=== PATIENT | male | born 1950 | race African-American/Black ===

== ENCOUNTER 2017-08-04 21:09 | Emergency (ER) | payer MEDICARE ==
[2013-07-28 01:44] VITALS: BMI 40.9
[~2017-08-04 21:09] MED LIST: ASPIRIN325 MG PO; CARAFATE1 G PO; COREG25 MG PO; FLOMAX0.4 MG PO; LASIX20 MG PO; MEDROL DOSE PACK4 MG PO; MICRO-K10 MEQ PO; NORCO 10/325 TA1 TA1 PO; PRINIVIL20 MG PO; PROTONIX40 MG PO; VIBRAMYCIN50 MG PO; ZITHROMAX500 MG PO
[2017-08-04 21:59] LABS: BASOPHILS 0.1 % (0-2); EOSINOPHILS 3.7 % (0-7); HEMOGLOBIN 13.5 g/dL (13.5-17.5); IMMATURE GRANULOCYTES 0.4 % (0-5); LYMPHOCYTES 19.8 % (15-50); MCH 31.8 pg (26.0-34.0); MCHC 32.9 g/dL (31.0-37.0); MCV 96.5 fL (80.0-100.0); MEAN PLATELET VOLUME 10.4 fL (7.4-10.4); MONOCYTES 7.1 % (2-11); NEUTROPHILS 68.9 % (40-80); PLATELET COUNT 162 10x3/uL (130-400); RBC 4.25 10x6/uL (4.20-6.10); RDW 12.9 % (11.5-14.5); WBC 6.7 10x3/uL (4.8-10.8)
[2017-08-04 22:12] LABS: ALBUMIN 3.4 g/dL (3.4-5.0); ALKALINE PHOSPHATASE 80 U/L (46-116); ALT (SGPT) 24 U/L (10-68); CALC OSMOLALITY 278 mosm/kg (275-300); CALCIUM 9.9 mg/dL (8.5-10.1); CARBON DIOXIDE 26.2 mmol/L (21.0-32.0); CHLORIDE - SERUM 100 mmol/L (98-107); GLUCOSE 164 mg/dL (74-106); POTASSIUM - SERUM 3.7 mmol/L (3.5-5.1); SODIUM 138 mmol/L (136-145); UREA NITROGEN 9 mg/dL (7-18); eGFR NON AFRICAN AMERICAN 79 mL/min (90-120)
[2017-08-04 22:15] LABS: HELICOBACTER PYLORI IGG NEGATIVE (NEGATIVE)
[2017-08-04 22:27] LABS: AMYLASE - SERUM 70 U/L (25-115); CHOL - HDL RATIO 2.9 ratio (2.3-4.9); CHOLESTEROL, TOTAL 154 mg/dL (0-200); CKMB 1.1 U/L (0.0-3.6); CREATINE KINASE 232 UL (21-232); HDL CHOLESTEROL 54 mg/dL (32-96); LDL CHOLESTEROL 72 mg/dL (0-100); LDL-HDL RATIO 1.3 ratio (1.5-3.5); LIPASE 76 U/L (73-393); MAGNESIUM - SERUM 1.7 mg/dL (1.8-2.4); PRO BNP 98 pg/mL (0-125); TRIGLYCERIDE 142 mg/dL (30-200); TROPONIN-I < 0.017 ng/mL (0.000-0.060)
== END 2017-08-04 22:45 | disposition home or self-care (01) ==
LOC: D.ER 21:09
PROVIDERS: Family Medicine; Nurse Practitioner Family
DX: K21.9 Gastro-esophageal reflux disease without esophagitis (principal); R10.13 Epigastric pain; I10 Essential (primary) hypertension

== ENCOUNTER → 2017-08-24 09:46 | Outpatient (CLI) | payer MEDICARE ==
[2013-07-28 01:44] VITALS: BMI 40.9
== END | disposition home or self-care (01) ==
LOC: D.ECHO 08-21 10:00
DX: I20.9 Angina pectoris, unspecified (principal); I10 Essential (primary) hypertension; R06.00 Dyspnea, unspecified

== ENCOUNTER 2017-09-09 18:07 | Emergency (ER) | payer MEDICARE ==
[2013-07-28 01:44] VITALS: BMI 40.9
[2017-09-09 19:38] LABS: BASOPHILS 0.3 % (0-2); EOSINOPHILS 2.6 % (0-7); HEMATOCRIT 41.3 % (42.0-54.0); IMMATURE GRANULOCYTES 1.3 % (0-5); LYMPHOCYTES 24.9 % (15-50); MCH 31.4 pg (26.0-34.0); MCHC 33.9 g/dL (31.0-37.0); MCV 92.6 fL (80.0-100.0); MEAN PLATELET VOLUME 10.6 fL (7.4-10.4); MONOCYTES 6.7 % (2-11); NEUTROPHILS 64.2 % (40-80); PLATELET COUNT 201 10x3/uL (130-400); RBC 4.46 10x6/uL (4.20-6.10); RDW 12.4 % (11.5-14.5); WBC 7.4 10x3/uL (4.8-10.8)
[2017-09-09 19:56] LABS: ALBUMIN 3.6 g/dL (3.4-5.0); ALKALINE PHOSPHATASE 74 U/L (46-116); ALT (SGPT) 25 U/L (10-68); BILIRUBIN - TOTAL 0.47 mg/dL (0.2-1.3); CALC OSMOLALITY 279 mosm/kg (275-300); CALCIUM 9.6 mg/dL (8.5-10.1); CARBON DIOXIDE 27.4 mmol/L (21.0-32.0); CHLORIDE - SERUM 101 mmol/L (98-107); CREATININE - SERUM 1.1 mg/dL (0.6-1.3); POTASSIUM - SERUM 3.6 mmol/L (3.5-5.1); PROTEIN - SERUM 6.8 g/dL (6.4-8.2); SODIUM 136 mmol/L (136-145); UREA NITROGEN 16 mg/dL (7-18); eGFR NON AFRICAN AMERICAN 71 mL/min (90-120)
[2017-09-09 19:59] LABS: GLUCOSE 219 mg/dL (74-106)
[2017-09-09 20:07] LABS: CKMB 0.9 U/L (0.0-3.6); CREATINE KINASE 117 UL (21-232)
[2017-09-09 20:08] LABS: TROPONIN-I < 0.017 ng/mL (0.000-0.060)
== END 2017-09-09 21:42 | disposition home or self-care (01) ==
LOC: D.ER 18:07
PROVIDERS: Family Medicine
DX: J11.1 Influenza due to unidentified influenza virus with other respiratory manifestations (principal); E86.0 Dehydration; K21.9 Gastro-esophageal reflux disease without esophagitis; I10 Essential (primary) hypertension

== ENCOUNTER 2017-09-12 06:40 | Outpatient (CLI) | payer MEDICARE ==
[~2017-09-12] VITALS: Ht 185.4 cm; Wt 154.5 kg
--- NOTE | ~2017-09-12 | OP ---
PATIENT NAME: RAYMOND HERNANDEZ MEDICAL RECORD: [id number] :48 LOCATION:D.CAT ADMISSION DATE: SURGEON: OUMAR ECKERT MD DATE OF OPERATION: 09/12/2017 PROCEDURE: Left heart cath, LV gram, coronary angiogram. CONVERTIBLE SOFA BEDSPRING TESTER: Oumar Eckert MD PROCEDURE IN DETAIL: The patient was brought to cardiac catheterization lab in stable condition. Both groins sterilely prepped and draped. The patient had a 6-Beninese sheath placed in the right radial artery using modified Seldinger technique. The patient then had serial catheters utilized to selectively engage the left coronary artery, the LV catheter. We nonselectively engaged the right coronary artery. FINDINGS: 1. Left main is a large vessel, normal. 2. The circumflex appears to be a codominant vessel with mild atherosclerotic changes in the proximal 40% stenosis. 3. The LAD is shown to be a large vessel with diffuse atherosclerotic changes. 4. The right coronary artery comes up high above the sinotubular junction and has diffuse atherosclerotic changes. There is no evidence of significant stenoses. HEMODYNAMICS: Left ventricular ejection fraction is 50%, end-diastolic pressure is normal. No significant mitral regurgitation. No gradient across the aortic valve. IMPRESSION: Mild diffuse coronary artery disease with preserved LV systolic function. RECOMMENDATIONS: Aggressive medical management. TRANSINT:[id number] Voice Confirmation ID: [id number] DOCUMENT ID: [id number] OUMAR ECKERT MD at 1111 CC: [id number] DICTATION DATE: 09/12/17921 ACTIVITY THERAPIST: 09/12/17 [id number] [place] [address]
--- NOTE | ~2017-09-12 | HEMODYNAMI ---
PATIENT:RAYMOND HERNANDEZ MEDICAL RECORD: [id number] : 48 LOCATION:DMUNA ADMISSION DATE: 09/12/17 Generatedon:09/12/20179:20 Patient name: RAYMOND HERNANDEZ Patient #: [id number] SSN: DO B: 1950 Date of study: 09/12/2017 Page: Of Hemodynamic Procedure Report Patient Data Patient Demographics Procedure consent was obtained First Name: RAYMOND Gender: Male Last Name: DAVID : 1950 Middle Initial: LUPE Age: 67 year(s) Patient #: [id number] Race: Black Additional ID: [id number] Contact details Address: [address] [place] [address] State: [place] City: [place] Zip code: [address] Past Medical History Allergies Allergen Reaction Date Comments Reported Other allergy 09/12/2017 albumin colloid, human. Admission Admission Data Admission Date: 09/12/2017 Admission Time: 6:40 Height (in.): 6 BSA: 0.45 (m2) Height (cm.): 15.24 BMI: 6815.87 (kg/m2) Weight (lbs.): 349 Weight (kg.): 158.3 Lab Results Lab Result Date: 09/12/2017 Lab Result Time: 0:00 Biochemistry Name Units Result Min Max BUN mg/dl 9 --(*---)-- 7 18 Creatinine mg/dl 0.9 --(-*--)-- 0.6 1.3 CBC Name Units Result Min Max Hemoglobin g/dl 13 -*(----)-- 13.5 17.5 Procedure Procedure Types Cath Procedure Diagnostic Procedure [facility] w/Coronaries Miscellaneous Procedures Moderate Sedation up to 30 minutes Procedure Description Procedure Date Procedure Date: 09/12/2017 Procedure Start Time: 8:46 Procedure End Time: 9:18 Procedure Staff Name Function Oumar Canales MD Performing Physician Judit Sexton RT Scrub Desmond Patterson RT Monitor Tobias Ernst RN Nurse Bassem Villagran RN Nurse Shiva Glover RN Nurse Procedure Data Cath Procedure Fluoroscopy Diagnostic fluoroscopy Total fluoroscopy Time: time: 12.4 min 12.4 min Diagnostic fluoroscopy Total fluoroscopy dose: dose: 2366 mGy 2366 mGy Contrast Material Contrast Material Type Amount (ml) Isovue 300 144 Entry Location Entry Primary Successful Side Size Upsize Upsize Entry Closure [place] ccessful Closure Location (Fr) 1 (Fr) 2 (Fr) Remarks Device Remarks Radial Right 6 Fr Mechanical artery Short Compression Estimated blood loss: 5 ml Diagnostic catheters Device Type Used For End Catheter Placement DIAGNOSTIC AR 1 MOD 5Fr Procedure catheter ([id number]) DIAGNOSTIC Pigtail 5Fr Procedure catheter ([id number]) DIAGNOSTIC 3DRC 5Fr Procedure catheter ([id number]) DIAGNOSTIC MPA-2 5Fr Procedure catheter ([id number]) DIAGNOSTIC [place] 110cm 5 Procedure Fr catheter ([id number]) Procedure Complications No complications Procedure Medications Medication Administration Route Dosage Oxygen NC 2 l/min Lidocaine 2% added to field 20 Heparin Flush Bag added to field 2 bags (1000units/500ml NS) 0.9% NaCl I.V. 100 ml/hr Versed I.V. 2 mg Fentanyl I.V. 50 mcg Versed I.V. 1 mg Radial Cocktail I.A. 1 syringe (Verapomil 2mg/Nitro 400mcg/Heparin 1500units) Hemodynamics Rest BSA: 0.45 (m2) HGB: 13 (g/dl) O2 Consumption: Estimated: 53.04 (ml/min) O2 Consu mption indexed: Estimated:117.87 (ml/min/m) Heart Rate: 75 (bpm) Pressure Samples Time Site Value (mmHg) Purpose Heart Use Rate(bpm) 8:52 LV 136/1,19 EDP 76 8:54 AO 103/72(88) Pullback 91 Gradients Valve Time Site Site 2 Mean SEP/DFP Peak To Heart Use 1 (mmHg) (sec/min) Peak Rate (mmHg) (bpm) Aortic 8:54 LV AO 2 5 91 103/72(88) Calculations Valve P-P Mean Valve Index Valve Source Name Gradient Area Flow (cm2) Aortic 2 2 Snapshots Pre Cath Intra NCS Post Cath Vital Signs Time Heart Resp SPO2 etCO2 NIBP (mmHg) Rhythm Pain Sedation Rate (ipm) (%) (mmHg) Status Level (bpm) 8:33:10 77 14 95 33.3 140/87(106) NSR 0 (11) 10(A) , No pain 8:41:01 75 13 93 29.5 128/90(108) NSR 0 (11) 10(A) , No pain 8:46:06 76 14 92 29.5 132/82(108) NSR 0 (11) 10(A) , No pain 8:51:07 82 15 92 0 116/76(97) NSR 0 (11) 9(A) , No pain 8:56:07 78 18 92 3 119/76(88) NSR 0 (11) 9(A) , No pain 9:01:08 75 13 91 28 121/73(92) NSR 0 (11) 9(A) , No pain 9:06:09 72 16 93 30.3 123/76(98) NSR 0 (11) 9(A) , No pain 9:11:10 74 19 92 34.9 118/80(98) NSR 0 (11) 10(A) , No pain 9:16:09 73 16 95 33.4 121/82(99) NSR 0 (11) 10(A) , No pain Medications Time Medication Route Dose Verified Delivered Reason Notes E ffectiveness by by 8:31:29 Oxygen NC 2 l/min Oumar Buffie used for Parker Villagran RN procedure 8:31:36 Lidocaine 2% added 20ml Oumar Oumar for local to vial Parker Canales MD anesthetic field SILVERIO 8:31:42 Heparin Flush added 2 bags Oumar Oumar used for Bag to Parker Canales MD procedure (1000units/500ml field SILVERIO NS) 8:31:51 0.9% NaCl I.V. 100 Oumar Buffie Per ml/hr Parker Villagran RN physician 8:42:40 Versed I.V. 2 mg Oumar Buffie for sedation Parker Villagran RN, MD 8:42:46 Fentanyl I.V. 50 mcg Oumar Buffie for sedation Parker Villagran RN, MD 8:45:22 Versed I.V. 1 mg Oumar Buffie for sedation Parker Villagran RN, MD 8:48:16 Radial Cocktail I.A. 1 Oumar Oumar for (Verapomil syringe Parker Canales MD vasodilation 2mg/Nitro 400mcg/Heparin 1500units) Procedure Log Time Note 8:12:51 Patient Height : 6 inches 8:12:58 Patient Weight : 349 lbs 8:14:02 Signed procedure consent form obtained from patient. 8:14:17 Time tracking: Regular hours 8:14:22 Plan of Care:Hemodynamics will remain stable., Cardiac rhythm will remain stable., Comfort level will be maintained., Respiratory function will remain adequate., Patient/ family verbilizes understanding of procedure., Procedure tolerated without complication., Recovers from procedure without complications.. 8:14:33 H&P Date Dictated: 09/11/2017 Within 30 days and on chart., H&P Addendum completed by physician on day of procedure. (MUST COMPLETE FOR ALL OUTPATIENTS). 8:17:07 Lab Result : BUN 9 mg/dl 8:17:07 Lab Result : Creatinine 0.9 mg/dl 8:17:07 Lab Result : Hemoglobin 13 g/dl 8:19:58 Tobias Ernst RN sent for patient. Start room use. 8:26:07 Patient received from Pre/Post Procedure Room to CCL 1 Alert and oriented. Tansferred to table in Supine position. 8:26:07 Warm blankets applied, and edmar hugger turned on for patient comfort. 8:26:24 Correct patient and procedure confirmed by team. 8:26:25 ECG and BP/O2 sat monitors applied to patient. 8:26:26 Pre-procedure instructions explained to patient. 8:26:27 Pre-op teaching completed and patient verbalized understanding. 8:26:28 Family in waiting room. 8:26:29 Patient NPO since Midnight. 8:28:12 Patient allergic to Other allergyalbumin colloid, human. 8:31:29 Oxygen 2 l/min NC was administered by Bassem Villagran RN; used for procedure; 8:31:36 Lidocaine 2% 20ml vial added to field was administered by Oumar Canales MD; for local anesthetic; 8:31:42 Heparin Flush Bag (1000units/500ml NS) 2 bags added to field was administered by Oumar Canales MD; used for procedure; 8:31:51 0.9% NaCl 100 ml/hr I.V. was administered by Bassem Villagran RN; Per physician; 8:39:42 Vital chart was started 8:40:49 Baseline sample Acquired. 8:40:54 Rhythm: sinus rhythm 8:40:57 Is the patient allergic to Iodine/contrast media? No. 8:40:58 Is patient on blood thinner?Yes 8:41:00 ACC The patient was administered the following blood thiners within the last 24 hours: ACCPlavix 8:41:02 Patient diabetic? No. 8:41:06 Previous problem with sedation/anesthesia? No ? 8:41:07 Snore? Yes 8:41:18 Sleep apnea? No 8:41:19 Deviated septum? No 8:41:20 Opens mouth fully? Yes 8:41:21 Sticks out tongue? Yes 8:41:23 Airway obstruction? No ? 8:41:25 Dentures? No ? 8:41:27 Modified Nimesh's test Ulnar > 7 seconds. 8:41:28 Patient pain scale 0/10 ?. 8:41:34 IV patent on arrival in left forearm with 0.9% NaCl at O. 8:41:37 Lab results completed and on chart. 8:41:40 Right Radial & Right Groin area was prepped with chlora-prep and draped in sterile fashion 8:41:41 Alarms reviewed by R. N. 8:41:41 Sharps counted by scrub and verified by R.N. 8:41:43 Use device set Radial Dx or PCI 8:41:44 ACIST Syringe (12997) opened to sterile field. 8:41:45 Medline Cath Pack ([id number]) opened to sterile field. 8:41:47 ACIST Hand Control (83823) opened to sterile field. 8:41:47 ACIST Manifold (00357) opened to sterile field. 8:41:48 Tegaderm 4 x 4 (1626W) opened to sterile field. 8:41:48 MBrace Wrist Support ([id number]) opened to sterile field. 8:41:49 Bag Decanter (2001S) opened to sterile field. 8:41:52 SHEATH 6FR Slender ([id number]) opened to sterile field. 8:41:52 DIAGNOSTIC WIRE .035 260cm J wire (183954) opened to sterile field. 8:42:03 Physician arrived 8:42:04 --------ALL STOP TIME OUT------ 8:42:04 Final Timeout: patient, procedure, and site verified with staff and physician. All members of the team are in agreement. 8:42:06 Right Radial & Right Groin site verified by team. 8:42:08 Physical assessment completed. ASA score P 2 - A patient with mild systemic disease as per Oumar Canales MD. 8:42:10 Sedation plan: IV Moderate Sedation Medication:Versed, Fentanyl 8:42:40 Versed 2 mg I.V. was administered by Bassem Villagran RN; for sedation; 8:42:46 Fentanyl 50 mcg I.V. was administered by Bassem Villagran RN; for sedation; 8:45:22 Versed 1 mg I.V. was administered by Bassem Villagran RN; for sedation; 8:46:21 Procedure started. 8:46:21 Full Disclosure recording started 8:46:24 Local anesthetic to right radial artery with Lidocaine 2% by Oumar Canales MD.INITIAL ACCESS ONLY 8:46:31 A 6 Fr Short sheath was inserted into the Right Radial artery 8:48:05 Zero performed for pressure channel P1 8:48:08 Zero performed for pressure channel P1 8:48:16 Radial Cocktail (Verapomil 2mg/Nitro 400mcg/Heparin 1500units) 1 syringe I.A. was administered by Oumar Canales MD; for vasodilation; 8:49:40 A DIAGNOSTIC [place] 110cm 5 Fr catheter (309676) was advanced over the wire and used for Procedure. 8:50:13 LCA angiography performed. 8:52:57 LV gram done using ERICKSON 8:53:00 Injector settings: Ml/sec: 12, Volume: 8, 8:53:02 LV hemodynamics recorded. 8:54:02 EF : 55 % 8:54:06 Catheter exchanged over wire. 8:55:22 A DIAGNOSTIC [place] 1 MOD 5Fr catheter ([id number]) was advanced over the wire and used for Procedure. 9:01:12 RCA angiography performed. 9:02:44 Catheter exchanged over wire. 9:02:54 A DIAGNOSTIC Pigtail 5Fr catheter ([id number]) was advanced over the wire and used for Procedure. 9:04:41 Aortic Root visualized 9:07:02 Catheter exchanged over wire. 9:08:02 A DIAGNOSTIC 3DRC 5Fr catheter ([id number]) was advanced over the wire and used for Procedure. 9:09:19 Catheter removed. unable to cannulate vessel. 9:10:01 A DIAGNOSTIC MPA-2 5Fr catheter ([id number]) was advanced over the wire and used for Procedure. 9:12:08 Catheter removed. unable to cannulate vessel. 9:13:27 TR BAND Large ([id number]) opened to sterile field. 9:13:52 Sheath removed intact; hemostasis achieved with Mechanical Compression to the Right Radial artery. 9:13:53 Procedure ended.(Physican Out) 9:14:06 Fluoroscopy time 12.40 minutes. 9:14:10 Flurop Dose total: 2366 9:14:10 Fluoroscopy dose: 2366 mGy 9:14:16 Contrast amount:Isovue 300 144ml. 9:14:20 Sharps counted by scrub and verified by R.N. 9:14:22 Insertion/operative site no bleeding no hematoma. 9:14:28 Post right radial artery:stable, soft, clean and dry 9:14:30 Post Procedure Pulses reassessed and unchanged 9:15:09 Post-procedure physical assessment completed. ASA score P 2 - A patient with mild systemic disease as per Oumar Canales MD. 9:15:17 Post procedure rhythm: unchanged. 9:15:19 Estimated blood loss: 5 ml 9:15:20 Post procedure instruction explained to patient.Patient verbalizes understanding. 9:15:21 Patient needs reinforcement of post procedure teaching. 9:15:33 Procedure type changed to Cath procedure, Diagnostic procedure, LHC, LHC w/Coronaries, Miscellaneous Procedures, Moderate Sedation up to 30 minutes 9:17:13 TR band inflated with 11cc of air. 9:17:54 Procedure and supply charges have been captured, reviewed, submitted and are correct. 9:17:57 Procedure Complication : No complications 9:18:04 Vital chart was stopped 9:18:04 See physician's report for complete and final results. 9:18:06 Report given to Pre/Post Procedure Room. 9:18:08 Patient transfered to Pre/Post Procedure Room with Stretcher. 9:18:14 Procedure ended. 9:18:14 Full Disclosure recording stopped 9:18:18 End room use (Document Last) Device Usage Item Name Manufacture Quantity Catalog Hospital Part Current Minima l Lot# / Number Charge Number Stock Stock Serial# Code ACIST Acist 1 69353 066166 976107 483569 20 Syringe Medical (45432) Systems Inc Medline Cath Cardinal 1 [id number] 113570 77795 241036 5 Pack Health ([id number]) ACIST Hand Acist 1 68424 541887 410563 733993 5 Control Medical (52589) Systems Inc ACIST Acist 1 46861 674700 888321 400001 5 Manifold Medical (02461) Systems Inc Tegaderm 4 x 3M 1 1626W 329710 235499 928676 5 4 (1626W) MBrace Wrist Advanced 1 140-0250-00 143654 98420 013527 5 Support Vascular (569770491) Dynamics Bag Decanter Microtek 1 2001S 805018 97555 315471 5 (2001S) Medical Inc. SHEATH 6FR Terumo 1 [id number] 091181 867728 335903 40 Slender ([id number]) DIAGNOSTIC St Reece 1 087690 216500 523480 946060 30 WIRE .035 260cm J wire (282915) DIAGNOSTIC Cardinal 1 169411P 045905 723946 346356 15 AR 1 MOD 5Fr Health catheter (709705W) DIAGNOSTIC Cardinal 1 935003P 405657 959377 974342 5 Pigtail 5Fr Health catheter (479402X) DIAGNOSTIC Cardinal 1 [id number] 672232 591339 687579 9 3DRC 5Fr Health catheter (449067F) DIAGNOSTIC Cardinal 1 [id number] 285686 692324 079521 5 MPA-2 5Fr Health catheter (458184W) TR BAND Terumo 1 [id number] 774365 848006 640430 40 Large ([id number]) DIAGNOSTIC Terumo 1 40-9030 557919 785528 173146 5 [place] 110cm 5 Fr catheter (207613) Signature Audit Independence Stage Time Signature Unsigned Intra-Procedure 09/12/2017 Desmond Patterson 9:20:38 AM RT(R) Signatures Monitor : Desmond Patterson RT Signature : Date : Time : [facility] [address] [place] [address]
[2017-09-12] MEDS ORDERED: MINIPRESS1 MG PO (06:44)
[2017-09-12] MEDS ORDERED: NORVASC5 MG PO (06:45)
[2017-09-12] MEDS ORDERED: DIOVAN160 MG PO (06:45)
[2017-09-12] MEDS ORDERED: HYDROCHLOROTH12.5 M1 PO (06:46)
[2017-09-12] MEDS ORDERED: COREG12.5 MG PO (06:46)
[2017-09-12] MEDS ORDERED: NEURONTIN 300300 MG PO (06:46)
[2017-09-12 06:56] VITALS: BP 146/86; Ht 185.4 cm; Wt 154.5 kg
[2017-09-12 07:20] LABS: BASOPHILS 0.3 % (0-2); EOSINOPHILS 2.5 % (0-7); HEMATOCRIT 39.7 % (42.0-54.0); IMMATURE GRANULOCYTES 1.6 % (0-5); LYMPHOCYTES 21.7 % (15-50); MCH 31.3 pg (26.0-34.0); MCHC 32.7 g/dL (31.0-37.0); MCV 95.7 fL (80.0-100.0); MEAN PLATELET VOLUME 10.7 fL (7.4-10.4); MONOCYTES 6.4 % (2-11); NEUTROPHILS 67.5 % (40-80); PLATELET COUNT 201 10x3/uL (130-400); RBC 4.15 10x6/uL (4.20-6.10); RDW 12.8 % (11.5-14.5); WBC 7.5 10x3/uL (4.8-10.8)
[2017-09-12 07:27] LABS: CALC OSMOLALITY 281 mosm/kg (275-300); CALCIUM 9.4 mg/dL (8.5-10.1); CARBON DIOXIDE 27.8 mmol/L (21.0-32.0); CHLORIDE - SERUM 102 mmol/L (98-107); CREATININE - SERUM 0.9 mg/dL (0.6-1.3); GLUCOSE 181 mg/dL (74-106); POTASSIUM - SERUM 3.6 mmol/L (3.5-5.1); SODIUM 139 mmol/L (136-145); UREA NITROGEN 9 mg/dL (7-18); eGFR NON AFRICAN AMERICAN 89 mL/min (90-120)
== END 2017-09-12 11:40 | disposition home or self-care (01) ==
LOC: D.CATH 06:40
PROVIDERS: Internal Medicine Cardiovascular Disease
DX: I25.10 Atherosclerotic heart disease of native coronary artery without angina pectoris (principal); I10 Essential (primary) hypertension; R06.00 Dyspnea, unspecified; Z01.812 Encounter for preprocedural laboratory examination

== ENCOUNTER 2017-12-01 00:19 | Emergency (ER) | payer MEDICARE ==
[2017-09-12 06:56] VITALS: BMI 44.9
[~2017-12-01 00:19] MED LIST changes: +COREG12.5 MG PO; +DIOVAN160 MG PO; +HYDROCHLOROTH12.5 M1 PO; +MINIPRESS1 MG PO; +NEURONTIN 300300 MG PO; +NORVASC5 MG PO
[2017-12-01 01:29] LABS: BASOPHILS 0.4 % (0-2); EOSINOPHILS 3.2 % (0-7); HEMATOCRIT 37.9 % (42.0-54.0); IMMATURE GRANULOCYTES 0.7 % (0-5); LYMPHOCYTES 22.9 % (15-50); MCH 32.4 pg (26.0-34.0); MCHC 34.3 g/dL (31.0-37.0); MCV 94.5 fL (80.0-100.0); MEAN PLATELET VOLUME 11.1 fL (7.4-10.4); MONOCYTES 6.9 % (2-11); NEUTROPHILS 65.9 % (40-80); PLATELET COUNT 196 10x3/uL (130-400); RBC 4.01 10x6/uL (4.20-6.10); RDW 12.5 % (11.5-14.5); WBC 5.6 10x3/uL (4.8-10.8)
[2017-12-01 01:38] LABS: APPEARANCE CLEAR (CLEAR); BILIRUBIN NEGATIVE (NEGATIVE); COLOR YELLOW (YELLOW); GLUCOSE NEGATIVE (NEGATIVE); KETONE NEGATIVE (NEGATIVE); NITRITE NEGATIVE (NEGATIVE); PROTEIN NEGATIVE (NEGATIVE); SPECIFIC GRAVITY 1.015 (1.005-1.020); UROBILINOGEN NORMAL (NORMAL)
[2017-12-01 02:15] LABS: ALBUMIN 3.7 g/dL (3.4-5.0); ANION GAP 13.3 mmol/L (8-16); BILIRUBIN - TOTAL 0.5 mg/dL (0.2-1.3); C-REACTIVE PROTEIN 0.6 mg/dL (0.0-0.9); CALCIUM 10.2 mg/dL (8.5-10.1); CARBON DIOXIDE 27.6 mmol/L (21.0-32.0); CREATININE - SERUM 1.2 mg/dL (0.6-1.3); MAGNESIUM - SERUM 1.6 mg/dL (1.8-2.4); POTASSIUM - SERUM 3.9 mmol/L (3.5-5.1); PROTEIN - SERUM 7.2 g/dL (6.4-8.2)
== END 2017-12-01 04:00 | disposition home or self-care (01) ==
LOC: D.ER 00:19
PROVIDERS: Family Medicine
DX: E11.40 Type 2 diabetes mellitus with diabetic neuropathy, unspecified (principal); K21.9 Gastro-esophageal reflux disease without esophagitis; I10 Essential (primary) hypertension

== ENCOUNTER 2019-01-16 20:36 | Emergency (ER) | payer MEDICARE ==
[~2019-01-16] VITALS: Ht 185.4 cm; Wt 152.3 kg
[2019-01-16 20:40] VITALS: Ht 185.4 cm; Wt 152.3 kg
[2019-01-16] MEDS ORDERED: GLIPIZIDE10 MG PO (20:42)
[2019-01-16] MEDS ORDERED: HYDROCODON-ACE1 EA10 PO (20:42)
[2019-01-16] MEDS ORDERED: LASIX40 MG PO (20:42)
[2019-01-16] MEDS ORDERED: COZAAR50 MG (20:43)
[2019-01-16] MEDS ORDERED: PATANOL 0.1 % OP5 ML EACH EYE (21:09)
[2019-01-16 21:24] VITALS: BP 132/78
== END 2019-01-16 21:25 | disposition home or self-care (01) ==
LOC: D.ER 20:36
DX: H10.33 Unspecified acute conjunctivitis, bilateral (principal)

== ENCOUNTER 2019-01-22 11:04 | Inpatient (IN) | payer MEDICARE ==
[2019-01-22] VITALS (12 sets, daily range): BP systolic 118–143; BP diastolic 67–82; BMI 44.6
[~2019-01-22] VITALS: Ht 185.4 cm; Wt 153.3 kg
[~2019-01-22 11:04] MED LIST changes: +COZAAR50 MG PO; +GLIPIZIDE10 MG PO; +HYDROCODON-ACE1 EA10 PO; +LASIX40 MG PO; +PATANOL 0.1 % OP5 ML EACH EYE
[2019-01-22 12:03] LABS: BASOPHILS 0.2 % (0-2); EOSINOPHILS 0.1 % (0-7); HEMATOCRIT 43.1 % (42.0-54.0); HEMOGLOBIN 14.9 g/dL (13.5-17.5); IMMATURE GRANULOCYTES 0.5 % (0-5); LYMPHOCYTES 6.2 % (15-50); MCH 31.7 pg (26.0-34.0); MCHC 34.6 g/dL (31.0-37.0); MCV 91.7 fL (80.0-100.0); MEAN PLATELET VOLUME 10.6 fL (7.4-10.4); MONOCYTES 6.6 % (2-11); NEUTROPHILS 86.4 % (40-80); PLATELET COUNT 166 10x3/uL (130-400); RDW 12.7 % (11.5-14.5); WBC 15.3 10x3/uL (4.8-10.8)
[2019-01-22 12:19] LABS: ALBUMIN 3.9 g/dL (3.4-5.0); ALKALINE PHOSPHATASE 78 U/L (46-116); ALT (SGPT) 20 U/L (10-68); BILIRUBIN - TOTAL 1.33 mg/dL (0.2-1.3); CALC OSMOLALITY 278 mosm/kg (275-300); CALCIUM 10.5 mg/dL (8.5-10.1); CARBON DIOXIDE 25.3 mmol/L (21.0-32.0); CHLORIDE - SERUM 98 mmol/L (98-107); CREATININE - SERUM 1.9 mg/dL (0.6-1.3); GLUCOSE 181 mg/dL (74-106); POTASSIUM - SERUM 3.8 mmol/L (3.5-5.1); PROTEIN - SERUM 8.2 g/dL (6.4-8.2); SODIUM 135 mmol/L (136-145); UREA NITROGEN 23 mg/dL (7-18); eGFR NON AFRICAN AMERICAN 37 mL/min (90-120)
[2019-01-22 12:27] LABS: AMYLASE - SERUM 41 U/L (25-115); CKMB 0.7 U/L (0.0-3.6); CREATINE KINASE 335 UL (21-232); LIPASE 71 U/L (73-393); TROPONIN-I < 0.017 ng/mL (0.000-0.060)
--- NOTE | 2019-01-22 14:16 | NUR ---
BLADDER SCAN COMPLETED, MEASURED VOLUME STATES 55ML. EDP NOTIFIED.
--- NOTE | 2019-01-22 16:07 | NUR ---
PT AMBULATES TO BATHROOM, STEADY GAIT. CCUA COLLECTED ET TO LAB.
[2019-01-22 16:44] LABS: APPEARANCE CLEAR (CLEAR); BILIRUBIN NEGATIVE (NEGATIVE); COLOR DK YELLOW (YELLOW); GLUCOSE NEGATIVE (NEGATIVE); KETONE NEGATIVE (NEGATIVE); NITRITE NEGATIVE (NEGATIVE); PROTEIN TRACE mg/dL (NEGATIVE); UROBILINOGEN NORMAL (NORMAL)
[2019-01-22 16:45] LABS: BACTERIA MODERATE /hpf (NONE SEEN); WHITE CELLS - URINE 25-50 /hpf (0-5)
--- NOTE | 2019-01-22 16:57 | NUR ---
Report Received from Kirstin, RN
--- NOTE | 2019-01-22 17:06 | NUR ---
this nurse entered into room to greet patient and establish care. Pt is sleeping with even chest rhythm and movement. Pt is at his bedside and this nurse spoke with her to establish care and provide for needs. Pt denied needs but asked for a cup of coffee which this nurse provided.
--- NOTE | 2019-01-22 20:20 | NUR ---
PT ARRIVED TO FLOOR AT THIS TIME. ACCOMPANIED BY ER STAFF. PT HAD AN INCONTINENT EPISODE WHILE STANDING TO TRANSFER FROM STRETCHER TO BED. UPON ASSESSMENT OF IV IT WAS NOTED THAT THERE WAS SWELLING AND REDNESS AT THE SITE. IV REMOVED WITH CATH TIP INTACT.
[2019-01-23 00:30] VITALS: BP 92/52
--- NOTE | 2019-01-23 02:31 | NUR ---
APRIL SITED TO Naveen HORNER
[2019-01-23 04:00] VITALS: BP 109/62
--- NOTE | 2019-01-23 07:15 | NUR ---
RECEIVED REPORT FROM NIGHTSHIFT AND CARE ASSUMMED. HE WAS SHAKING SOME AND STATED I NEED WARM BLANKETS I AM FREEZING. TEMP WAS 103.2. TYLENOL WAS GIVEN PO AT THIS TIME. HE HAD MULTIPLE BLANKETS ON HIM THAT WERE REMOVED AND HE WAS LEFT WITH ONE SHEET AND ONE BLANKET WITH EXPLANATION GIVEN. AT BEDSIDE. CL IN REACH. RESP EVEN WITHOUT LABOR O2 ON.
[2019-01-23 08:27] VITALS: BP 126/83
--- NOTE | 2019-01-23 08:30 | NUR ---
RECHECK ON TEMP WAS 99.1. NO SHAKING AT THIS TIME.
[2019-01-23 09:41] LABS: BASOPHILS 0.1 % (0-2); EOSINOPHILS 0.1 % (0-7); HEMATOCRIT 36.9 % (42.0-54.0); HEMOGLOBIN 12.3 g/dL (13.5-17.5); IMMATURE GRANULOCYTES 0.4 % (0-5); MCH 30.9 pg (26.0-34.0); MCHC 33.3 g/dL (31.0-37.0); MCV 92.7 fL (80.0-100.0); MEAN PLATELET VOLUME 11.2 fL (7.4-10.4); MONOCYTES 6.5 % (2-11); NEUTROPHILS 86.9 % (40-80); RBC 3.98 10x6/uL (4.20-6.10); RDW 12.9 % (11.5-14.5); WBC 16.5 10x3/uL (4.8-10.8)
[2019-01-23 09:50] LABS: PLATELET COUNT 131 10x3/uL (130-400)
[2019-01-23 10:01] LABS: ALBUMIN 3.2 g/dL (3.4-5.0); ANION GAP 11.5 mmol/L (8-16); BILIRUBIN - TOTAL 1.78 mg/dL (0.2-1.3); CALCIUM 9.9 mg/dL (8.5-10.1); CREATININE - SERUM 1.8 mg/dL (0.6-1.3); POTASSIUM - SERUM 3.5 mmol/L (3.5-5.1)
--- NOTE | 2019-01-23 10:36 | NUR ---
IV WAS PULLED OUT WHILE GOING TO THE BATHROOM. RESTARTED WITH 22 GUAGE IN RIGHT FOREARM X 1 STICK. JACKIE WELL. IV FLUIDS RESUMED AT THIS TIME.
--- NOTE | 2019-01-23 11:45 | NUR ---
HIS HAD WENT DOWN TO GET LUNCH. HE GOT UP AND URINATED BEFORE HE GOT TO TOILET AND HAD MADE IT BACK TO THE BED WHEN I CAME IN. EDUCATED TO CALL FOR HELP NEXT TIME OR JUST USE THE URINAL THAT IS WITHIN REACH AT BEDSIDE.
[2019-01-23 11:51] VITALS: BP 122/70
--- NOTE | 2019-01-23 15:15 | NUR ---
TEMP 102.2 AT THIS TIME. TYLENOL GIVEN. TAKING PO FLUIDS WELL AT BEDSIDE. TELEMENTRY IS ON. O2 ON.
[2019-01-23 15:55] VITALS: BP 119/63
--- NOTE | 2019-01-23 16:45 | NUR ---
RECHECK ON TEMP IS 100.7. NO C/O AT THIS TIME
--- NOTE | 2019-01-23 17:45 | NUR ---
BLADDER SCAN DONE 30 MINUTES POST VOID WITH RESULTS OF 69 ML NOTED
--- NOTE | 2019-01-23 19:23 | NUR ---
PT IN BED RESTING WITH EVEN AND UNLABORED RESP NOTED. FAMILY AT BEDSIDE.
[2019-01-23 20:00] VITALS: BP 100/55
[2019-01-24] VITALS: BP 98/61
[2019-01-24 04:00] VITALS: BP 103/61
--- NOTE | 2019-01-24 07:00 | NUR ---
REPORT FROM NIGHTSHIFT AND CARE ASSUMED. HE IS IN BED AWAKE. O2 IS OFF AND IT WAS REPLACED. STATED HE HAD A HARD NIGHT ON AND OFF LAST NIGHT WITH SOME HEARTBURN. HE IS ALERT ABLE TO VOICE NEEDS. IV SITE TO RIGHT FOREARM WITH NS AT 50CC/HR INFUSING, SITE IS CLEAR. CL IN REACH AT BEDSIDE AND HELPS HIM.
--- NOTE | 2019-01-24 07:35 | NUR ---
C/O NAUSEA AND IS SHAKING WITH TEMP OF 99.7. TYLENOL AND ZOFRAN GIVEN.
[2019-01-24 08:38] VITALS: BP 140/70
[2019-01-24 08:55] LABS: BASOPHILS 0.1 % (0-2); EOSINOPHILS 0.3 % (0-7); HEMATOCRIT 33.5 % (42.0-54.0); HEMOGLOBIN 11.2 g/dL (13.5-17.5); IMMATURE GRANULOCYTES 0.5 % (0-5); LYMPHOCYTES 6.6 % (15-50); MCH 30.6 pg (26.0-34.0); MCHC 33.4 g/dL (31.0-37.0); MCV 91.5 fL (80.0-100.0); MEAN PLATELET VOLUME 10.7 fL (7.4-10.4); MONOCYTES 8.2 % (2-11); NEUTROPHILS 84.3 % (40-80); PLATELET COUNT 123 10x3/uL (130-400); RBC 3.66 10x6/uL (4.20-6.10); WBC 14.8 10x3/uL (4.8-10.8)
[2019-01-24 09:05] LABS: CALCIUM 9.8 mg/dL (8.5-10.1); CARBON DIOXIDE 26.5 mmol/L (21.0-32.0); CREATININE - SERUM 1.7 mg/dL (0.6-1.3); MAGNESIUM - SERUM 1.6 mg/dL (1.8-2.4); PHOSPHOROUS 2.2 mg/dL (2.5-4.9); POTASSIUM - SERUM 3.5 mmol/L (3.5-5.1)
--- NOTE | 2019-01-24 10:00 | NUR ---
LYING IN BED WITH NO C/O AT THIS TIME. AT BEDSIDE.
[2019-01-24 11:30] VITALS: BP 105/67
--- NOTE | 2019-01-24 13:00 | NUR ---
ALERT, DRILLING SUPERINTENDENT LEADS REPLACED AT THIS TIME. NO C/O. REMAINS AT BEDSIDE,
[2019-01-24 14:48] VITALS: BP 123/56
--- NOTE | 2019-01-24 20:25 | NUR ---
FAMILY MEMBERS AT BEDSIDE WITH PT. CALL LIGHT IN REACH.
[2019-01-25] VITALS: BP 108/43; BP 114/55
--- NOTE | 2019-01-25 00:12 | NUR ---
PT TEMP 102.5, TYLENOL 650MG GIVEN ORDERED.
--- NOTE | 2019-01-25 01:47 | NUR ---
I have reviewed this patient and I concur with the Shift Assessment completed by the Licensed Practical Nurse today this shift.
--- NOTE | 2019-01-25 01:54 | NUR ---
RECHECKED PT'S TEMP 99.5
--- NOTE | 2019-01-25 03:00 | NUR ---
REST QUIELTY IN BED. CALL LIGHT IN REACH.
[2019-01-25 03:40] LABS: BASOPHILS 0.1 % (0-2); EOSINOPHILS 0.8 % (0-7); HEMATOCRIT 32.3 % (42.0-54.0); HEMOGLOBIN 10.9 g/dL (13.5-17.5); IMMATURE GRANULOCYTES 0.5 % (0-5); LYMPHOCYTES 7.8 % (15-50); MCH 30.8 pg (26.0-34.0); MCHC 33.7 g/dL (31.0-37.0); MCV 91.2 fL (80.0-100.0); MEAN PLATELET VOLUME 10.8 fL (7.4-10.4); MONOCYTES 10.7 % (2-11); NEUTROPHILS 80.1 % (40-80); PLATELET COUNT 123 10x3/uL (130-400); RBC 3.54 10x6/uL (4.20-6.10); RDW 12.9 % (11.5-14.5); WBC 13.3 10x3/uL (4.8-10.8)
[2019-01-25 03:52] LABS: ANION GAP 10.3 mmol/L (8-16); CALCIUM 9.9 mg/dL (8.5-10.1); CARBON DIOXIDE 27.4 mmol/L (21.0-32.0); CREATININE - SERUM 1.5 mg/dL (0.6-1.3); MAGNESIUM - SERUM 1.7 mg/dL (1.8-2.4); PHOSPHOROUS 2.6 mg/dL (2.5-4.9); POTASSIUM - SERUM 3.7 mmol/L (3.5-5.1)
[2019-01-25 04:00] VITALS: BP 110/47
--- NOTE | 2019-01-25 07:15 | NUR ---
PT ASLEEP IN BED, DID NOT WAKE I ENTERED, DID NOT FURTHER DISTURB AT THIS TIME. NO SIGNS/SYMPTOMS OF DISTRESS NOTED, BREATHS EVEN/REGULAR. CL IN REACH, SRX2.
[2019-01-25 09:32] VITALS: BP 102/47
--- NOTE | 2019-01-25 10:29 | MORECARE ---
CASE MANAGEMENT DISCHARGE SUMMARY PATIENT: RAYMOND HERNANDEZ UNIT: [id number] ADM DATE: 01/22/19 AGE: 68 : 49 SEX: M ROOM/BED: D.2102 AUTHOR: ZULEMA YI PHYSICIAN: REFERRING PHYSICIAN: EBER KABA MD DATE OF SERVICE: 01/25/19 Discharge Plan Patient Name: RAYMOND HERNANDEZ [facility] [place] [facility] 1950 Planned Disposition: Home Anticipated Discharge Date: Discharge Date: Expected LOS: Initial Reviewer: CRISTÓBAL Initial Review Date: 01/25/2019 Generated: 01/25/19 11:28 am DCPIA - Discharge Planning Initial Assessment Updated by CRISTÓBAL: Michelle May on 01/25/19 10:25 am * Is the patient Alert and Oriented? Yes * How many steps to enter\exit or inside your home? * PCP Jerrod * [facility]acy [facility] * Preadmission Environment Home with Family * ADLs Independent * List name and contact numbers for known caregivers / representatives who currently or will assist patient after discharge: spouse Lidia [phone] * Additional services required to return to the preadmission environment? No * Can the patient safely return to the preadmission environment? Yes * Has this patient been hospitalized within the prior 30 days at any hospital? No Patient Name: RAYMOND HERNANDEZ Page [phone] at 1029 All edits/amendments must be made on the electronic document DICTATION DATE: 01/25/19 1028 FAST FOOD COOK: BETHANY 01/25/19 1028 RPT#: [id number] DC DATE: STATUS: ADM IN [facility] [address] [place] [address] END OF REPORT
--- NOTE | 2019-01-25 10:36 | MORECARE ---
CASE MANAGEMENT DISCHARGE SUMMARY PATIENT: RAYMOND HERNANDEZ UNIT: [id number] ADM DATE: 01/22/19 AGE: 68 : 49 SEX: M ROOM/BED: D.2102 AUTHOR: KDDOC PHYSICIAN: REFERRING PHYSICIAN: EBER KABA MD DATE OF SERVICE: 01/25/19 Discharge Plan Patient Name: RAYMOND HERNANDEZ Facility: [facility]:[place] : 1950 Planned Disposition: Home Anticipated Discharge Date: Discharge Date: Expected LOS: Initial Reviewer: [id number] Initial Review Date: 01/25/2019 Generated: 01/25/19 11:35 am Comments DCP- Discharge Planning Updated by [email or web address]: Michelle May on 01/25/19 9:[address] Patient Name: RAYMOND HERNANDEZ Admission Status: ER Accout number: [id number] Admission Date: 01-22-2019 : 1950 Admission Diagnosis: Attending: EBER KABA Current LOS: 3 Anticipated DC Date: Planned Disposition: Home Primary Insurance: [facility] MEDICARE SOLUTIONS Discharge Planning Comments: CM AFTER OBTAINING VERBAL CONSENT COMPLETED INITIAL ASSESSMENT. PT WAS EDUCATED ON CM ROLE AND ON ALL SERVICES AVAILABLE LIKE DME, HOME HEALTH AND REHAB SERVICES. PT DENIES ANY NEEDS AT THIS TIME. LIVES WITH SPOUSE AND STATES HOME IS A SAFE DC PLAN. CM WILL CONT TO FOLLOW THRU STAY Sales And Operations Trainee: Michelle May DCPIA - Discharge Planning Initial Assessment Updated by [email or web address]: Michelle May on 01/25/19 10:25 am * Is the patient Alert and Oriented? Yes * How many steps to enter\exit or inside your home? * PCP Jerrod * Pharmacy [facility] [address] * Preadmission Environment Home with Family * ADLs Independent * List name and contact numbers for known caregivers / representatives who currently or will assist patient after discharge: spouse Lidia [phone] * Additional services required to return to the preadmission environment? No * Can the patient safely return to the preadmission environment? Yes * Has this patient been hospitalized within the prior 30 days at any hospital? No Last DP export: 01/25/19 9:29 am Patient Name: RAYMOND HERNANDEZ Page [id number] at 1036 All edits/amendments must be made on the electronic document DICTATION DATE: 01/25/19 103 COMMERCIAL TELLER: BETHANY 01/25/19 1035 RPT#: [id number] DC DATE: STATUS: ADM IN [facility] [address] [place] [address] END OF REPORT
--- NOTE | 2019-01-25 10:40 | NUR ---
I have reviewed this patient and I concur with the Shift Assessment completed by the Licensed Practical Nurse today this shift.
[2019-01-25 11:00] VITALS: BP 116/67
[2019-01-25 15:00] VITALS: BP 104/60
--- NOTE | 2019-01-25 17:29 | NUR ---
PT IS AWAKE AND ORIENTED, AT BEDSIDE. PT HAS C/O MULTIPLE TIMES TODAY OF THE FOOD HERE. HE THINKS IT'S TERRIBLE. OTHER THAN THAT, PT HAS NO COMPLAINTS OR CONCENRS. HE HAS HAD SEVERAL SMALL BLADDER ACCIDENTS TODAY, THEY HAVE BEEN CLEANED UP QUICKLY. CL IN REACH, SRX2.
[2019-01-25 19:51] VITALS: BP 123/63
--- NOTE | 2019-01-25 21:35 | NUR ---
PM MEDS GIVEN ORDERED. CALL LIGHT IN REACH.
--- NOTE | 2019-01-26 00:57 | NUR ---
REST QUIETLY IN BED. CALL LIGHT IN REACH.
--- NOTE | 2019-01-26 02:45 | NUR ---
LAYING IN RIGHT SIDE, EYE CLOSE, CALL LIGHT IN REACH.
[2019-01-26 04:30] VITALS: BP 124/60
[2019-01-26 04:47] LABS: BASOPHILS 0.2 % (0-2); EOSINOPHILS 2.2 % (0-7); HEMATOCRIT 32.2 % (42.0-54.0); HEMOGLOBIN 10.9 g/dL (13.5-17.5); IMMATURE GRANULOCYTES 0.3 % (0-5); LYMPHOCYTES 12.2 % (15-50); MCH 30.9 pg (26.0-34.0); MCHC 33.9 g/dL (31.0-37.0); MCV 91.2 fL (80.0-100.0); MEAN PLATELET VOLUME 11.4 fL (7.4-10.4); MONOCYTES 8.5 % (2-11); NEUTROPHILS 76.6 % (40-80); RBC 3.53 10x6/uL (4.20-6.10); RDW 13.1 % (11.5-14.5)
[2019-01-26 04:54] LABS: PLATELET COUNT 154 10x3/uL (130-400); WBC 8.6 10x3/uL (4.8-10.8)
--- NOTE | 2019-01-26 05:12 | NUR ---
PT'S FSBS 135.
[2019-01-26 05:13] LABS: CALCIUM 9.8 mg/dL (8.5-10.1); CHLORIDE - SERUM 102 mmol/L (98-107); GLUCOSE 151 mg/dL (74-106); MAGNESIUM - SERUM 1.8 mg/dL (1.8-2.4); PHOSPHOROUS 2.8 mg/dL (2.5-4.9); POTASSIUM - SERUM 3.7 mmol/L (3.5-5.1); SODIUM 135 mmol/L (136-145); eGFR NON AFRICAN AMERICAN 79 mL/min (90-120)
[2019-01-26 05:17] LABS: CALC OSMOLALITY 273 mosm/kg (275-300); UREA NITROGEN 16 mg/dL (7-18)
--- NOTE | 2019-01-26 05:25 | NUR ---
I have reviewed this patient and I concur with the Shift Assessment completed by the Licensed Practical Nurse today this shift.
[2019-01-26 10:09] VITALS: BP 122/63
--- NOTE | 2019-01-26 10:36 | NUR ---
PT IS AWAKE AND ORIENTED LYING IN BED. STATES HE FEELS PRETTY OK TODAY, BUT THINKS HE STILL ISN'T WELL. PT IS VERY FRUSTRATED TO STILL BE IN THE HOSPITAL, HE IS SAD TO HAVE MISSED ALL HIS FAMILYS January EVENTS AND IS READY TO LEAVE. OTHERWISE PT HAS NO COMPLAINTS/CONCERNS/QUESTIONS TO VOICE AT THIS TIME. CL IN REACH, SRX2.
[2019-01-26 19:06] VITALS: BP 130/86
--- NOTE | 2019-01-26 19:10 | NUR ---
PATIENT LAYING IN BED. AT BEDSIDE. PATIENT HAS NO COMPLAINTS AT THIS TIME. NO DISTRESS NOTED.
[2019-01-26 20:00] VITALS: BP 104/61
[2019-01-27] VITALS: BP 138/79
--- NOTE | 2019-01-27 02:05 | NUR ---
PATIENT LAYING IN BED, EYES CLOSED, CHEST RISING AND FALLING. NO DISTRESS NOTED.
[2019-01-27 04:30] VITALS: BP 137/66
[2019-01-27 04:39] LABS: CALC OSMOLALITY 280 mosm/kg (275-300); CALCIUM 9.6 mg/dL (8.5-10.1); CARBON DIOXIDE 29.7 mmol/L (21.0-32.0); CHLORIDE - SERUM 103 mmol/L (98-107); GLUCOSE 141 mg/dL (74-106); MAGNESIUM - SERUM 1.8 mg/dL (1.8-2.4); PHOSPHOROUS 3.1 mg/dL (2.5-4.9); POTASSIUM - SERUM 4.1 mmol/L (3.5-5.1); SODIUM 139 mmol/L (136-145); UREA NITROGEN 14 mg/dL (7-18); eGFR NON AFRICAN AMERICAN 79 mL/min (90-120)
--- NOTE | 2019-01-27 05:32 | NUR ---
I have reviewed this patient and I concur with the Shift Assessment completed by the Licensed Practical Nurse today this shift.
[2019-01-27 05:46] LABS: BASOPHILS 0.3 % (0-2); EOSINOPHILS 1.9 % (0-7); HEMATOCRIT 32.5 % (42.0-54.0); HEMOGLOBIN 10.8 g/dL (13.5-17.5); IMMATURE GRANULOCYTES 1.2 % (0-5); LYMPHOCYTES 13.3 % (15-50); MCH 30.3 pg (26.0-34.0); MCHC 33.2 g/dL (31.0-37.0); MCV 91.3 fL (80.0-100.0); MEAN PLATELET VOLUME 11.1 fL (7.4-10.4); MONOCYTES 7.5 % (2-11); NEUTROPHILS 75.8 % (40-80); PLATELET COUNT 173 10x3/uL (130-400); RBC 3.56 10x6/uL (4.20-6.10); RDW 13.1 % (11.5-14.5); WBC 9.2 10x3/uL (4.8-10.8)
--- NOTE | 2019-01-27 07:43 | NUR ---
PT AWAKE AND ORIENTED, CURRENTLY RECIEVING BREATHING TX PER RESPIRATORY. PT STATES SHE SLEPT ABOUT FOUR HOURS LAST NIGHT, WHICH IS GOOD FOR HER. SHE STATES NO OTHER COMPLAINTS/CONCERNS/QUESTIONS THIS MORNING. DAUGHTER AT BEDSIDE. CL IN REACH, SRX2.
--- NOTE | 2019-01-27 07:45 | NUR ---
PT ASLEEP, DID NOT WAKE I ENTERED, DID NOT FURTHER DISTURB AT THIS TIME. AT BEDSIDE STATES HE SLEPT FAIRLY WELL LAST NIGHT, WITH JUST A FEW WAKE UPS TO USE THE BATHROOM. NO COMPLAINTS/QUESTIONS OR CONCERNS VOICED AT THIS TIME. THEY WOULD LIKE TO HAVE HIM SENT HOME TODAY BUT UNDERSTAND THAT THEY HAVE TO WAIT FOR THE BLOOD CULTURE RESULTS BEFORE LEAVING. CL IN REACH, SRX2.
[2019-01-27 09:44] VITALS: BP 145/74
[2019-01-27] MEDS ORDERED: RANITIDINE HCL150 M1 PO (09:54)
[2019-01-27] MEDS ORDERED: FLOMAX0.4 MG PO (09:54)
[2019-01-27] MEDS ORDERED: JANUVIA100 MG PO (09:55)
[2019-01-27] MEDS ORDERED: PROTONIX40 MG PO (09:55)
[2019-01-27] MEDS ORDERED: HYDROCHLOROTH12.5 M1 PO (09:55)
[2019-01-27 12:37] VITALS: BP 110/57
--- NOTE | 2019-01-27 14:02 | NUR ---
I have reviewed this patient and I concur with the Shift Assessment completed by the Licensed Practical Nurse today this shift.
[2019-01-27 14:46] VITALS: Ht 185.4 cm; Wt 153.3 kg
--- NOTE | 2019-01-27 17:50 | NUR ---
pt awake and oriented. has slept most of the day, i've woken him up every time i've gone in toDAY. PT IS ANXIOUS AND STATES HE WANTS TO LEAVE BUT KNOWS HE WILL *HOPEFULLY* GO HOME TOMORROW. NO COMPLAINTS/CONCERNS OR QUESTIONS FROM HIS OR HIMSELF AT BEDSIDE. CL IN REACH, SRX2.
[2019-01-27 18:52] VITALS: BP 130/86
--- NOTE | 2019-01-27 19:00 | NUR ---
PATIENT LAYING IN BED. EYES CLOSED, CHEST RISING AND FALLING. NO DISTRESS NOTED.
[2019-01-27 20:00] VITALS: BP 143/78
--- NOTE | 2019-01-27 22:01 | NUR ---
PATIENT LAYING IN BED. EYES CLOSED, CHEST RISING AND FALLING. NO DISTRESS NOTED.
[2019-01-28] VITALS: BP 147/75
--- NOTE | 2019-01-28 01:49 | NUR ---
I have reviewed this patient and I concur with the Shift Assessment completed by the Licensed Practical Nurse today this shift.
[2019-01-28 04:30] VITALS: BP 143/73
[2019-01-28 05:38] LABS: BASOPHILS 0.6 % (0-2); CALC OSMOLALITY 278 mosm/kg (275-300); CARBON DIOXIDE 30.7 mmol/L (21.0-32.0); CHLORIDE - SERUM 103 mmol/L (98-107); EOSINOPHILS 2.1 % (0-7); GLUCOSE 121 mg/dL (74-106); HEMATOCRIT 33.5 % (42.0-54.0); HEMOGLOBIN 11.1 g/dL (13.5-17.5); IMMATURE GRANULOCYTES 1.9 % (0-5); MAGNESIUM - SERUM 1.8 mg/dL (1.8-2.4); MCH 30.7 pg (26.0-34.0); MCHC 33.1 g/dL (31.0-37.0); MCV 92.8 fL (80.0-100.0); MEAN PLATELET VOLUME 11.7 fL (7.4-10.4); MONOCYTES 7.2 % (2-11); NEUTROPHILS 72.2 % (40-80); PHOSPHOROUS 3.6 mg/dL (2.5-4.9); PLATELET COUNT 198 10x3/uL (130-400); POTASSIUM - SERUM 4.2 mmol/L (3.5-5.1); RBC 3.61 10x6/uL (4.20-6.10); RDW 13.1 % (11.5-14.5); SODIUM 140 mmol/L (136-145); WBC 8.8 10x3/uL (4.8-10.8); eGFR NON AFRICAN AMERICAN 79 mL/min (90-120)
[2019-01-28 05:43] LABS: UREA NITROGEN 10 mg/dL (7-18)
[2019-01-28 07:55] VITALS: BP 174/95
--- NOTE | 2019-01-28 08:34 | NUR ---
RECEIVED REPORT. ASSUMED CARE OF PATIENT. CALL LIGHT WITHIN REACH. RESTING WITH EYES CLOSED. RESP EVEN AND UNLABORD. NO DISTRESS.
--- NOTE | 2019-01-28 09:00 | EC ---
PATIENT:RAYMOND HERNANDEZ DATE OF SERVICE: 01/22/19 SEX: M MEDICAL RECORD: [id number] DATE OF : [birth year] LOCATION:D.M2 D.210 AGE OF PATIENT: 68 ADMISSION DATE: 01/22/19 REFERRING PHYSICIAN: INTERPRETING PHYSICIAN: JEN GALLEGOS MD ECHOCARDIOGRAM REPORT ECHO CHARGES 4 ECHO COMPLETE Date: 01/25/19 CLINICAL DIAGNOSIS: R/O VEG ECHOCARDIOGRAPHIC MEASUREMENTS (adult normal given) AC root (d.<3.7cm) 3.8 cm LV Septum d (<1.2 cm> 1.1 cm Valve Excursion 1.9 cm LV Septum (systole) 1.3 cm Left Atria (s.<4.0cm> 3.7 cm LVPW d(<1.2cm) 1.2 cm RV (d.<2.3cm) 4.4 cm LVPW (sytole) 1.7 cm LV diastole(<5.6CM) 7.4 cm MV E-F(>70mm/sec) cm LV systole 6.0 cm LVOT Diameter 2.0 cm MV exc.(>10mm) cm Est.ejection fraction (50-75%) % DOPPLER: LVIT cm/sec A 80 cm/sec E 88 cm/sec LA cm/sec RVSP 28.6 mmHg LVOT 124 cm/sec AOP1/2T m/s Asc. Ao 195 cm/sec RVOT 73 cm/sec RA cm/sec PA 86 cm/sec AV Gradient Peak 15.2 mmHg AV Mean 8.5 mmHg AV Area 2.4 cm MV Gradient Peak 4.5 mmHg MV Mean 2.7 mmHg MV Area cm COMMENTS: American Sign Language Interpreter: Emir UMANA Linking Machine Operator: 3 Dr. Perez TAPE# PACS Pericardial Effusion N DATE OF SERVICE: Adequate 2-D echo, color-flow and spectral Doppler, and M-mode. No LVH. LV internal dimensions are normal. Wall motion is normal. EF is greater than or equal to 55%. Aortic valve sclerosis without stenosis by Doppler interrogation. Left atrium is normal at 3.7 cm. Mitral valve shows no prolapse. Trace MR. Right-sided chambers are grossly normal. Mild TR. No vegetation seen in all 4 cardiac valves. ECHOCARDIOGRAM REPORT [id number] RAYMOND HERNANDEZ TRANSINT:[id number] Voice Confirmation ID: [id number] DOCUMENT ID: [id number] JEN GALLEGOS MD at 0900 CC: [id number] DICTATION DATE: 01/26/19 1006 CRANE FOLLOWER: 01/26/19 1313 ADM IN [facility] [address] [id number]
--- NOTE | 2019-01-28 11:10 | NUR ---
FSBS 197. 2 UNITS ADMINISTERED PER SLIDING SCALE.
[2019-01-28 15:57] VITALS: BP 145/86
--- NOTE | 2019-01-28 17:01 | NUR ---
FSBS 135. NO INSULIN PER SLIDING SCALE. NO DISTRESS. CONSUMING PM MEAL
[2019-01-28 18:49] VITALS: BP 155/55
--- NOTE | 2019-01-28 19:00 | NUR ---
PATIENT LAYING IN BED. PATIENT STATES HE IS TIRED AND WANTS TO GO HOME. PATIENT HAS NO OTHER COMPLAINTS AT THIS TIME. NO DISTRESS NOTED.
[2019-01-29] VITALS: BP 151/87
--- NOTE | 2019-01-29 02:01 | NUR ---
PATIENT LAYING IN BED. EYES CLOSED, CHEST RISING AND FALLING. NO DISTRESS NOTED.
[2019-01-29 04:30] VITALS: BP 137/72
[2019-01-29 07:24] LABS: CALC OSMOLALITY 277 mosm/kg (275-300); CALCIUM 9.9 mg/dL (8.5-10.1); CARBON DIOXIDE 28.9 mmol/L (21.0-32.0); CHLORIDE - SERUM 103 mmol/L (98-107); GLUCOSE 122 mg/dL (74-106); PHOSPHOROUS 3.4 mg/dL (2.5-4.9); POTASSIUM - SERUM 4.2 mmol/L (3.5-5.1); SODIUM 139 mmol/L (136-145); UREA NITROGEN 11 mg/dL (7-18); eGFR NON AFRICAN AMERICAN 79 mL/min (90-120)
[2019-01-29 07:30] LABS: HEMATOCRIT 33.3 % (42.0-54.0); MCH 30.7 pg (26.0-34.0); MEAN PLATELET VOLUME 11.3 fL (7.4-10.4); RBC 3.58 10x6/uL (4.20-6.10); RDW 13.3 % (11.5-14.5)
[2019-01-29 07:32] LABS: PLATELET COUNT 262 10x3/uL (130-400)
[2019-01-29 08:05] LABS: BASOPHILS 1 % (0-2); EOSINOPHILS 4 % (0-7); LYMPHOCYTES 12 % (15-50); MONOCYTES 9 % (2-11); NEUTROPHILS 71 % (40-80); PLATELET ESTIMATE NORMAL
[2019-01-29 08:17] VITALS: BP 133/82
--- NOTE | 2019-01-29 11:05 | NUR ---
PATIENT REMAINS IN CONTACT ISOLATION FOR ESBL IN URINE AND E-COLI IN BLOOD. CALL LIGHT WITHIN REACH. VOICES NO NEEDS AT THIS TIME. WILL CONTINUE WITH PLAN OF CARE
--- NOTE | 2019-01-29 11:06 | NUR ---
IN ROOM WITH PATIENT. FOLLOWING ISOLOATION PRECAUSIONS
[2019-01-29 12:05] VITALS: BP 130/68
[2019-01-29] MEDS ORDERED: OMNICEF300 MG PO (13:27)
--- NOTE | 2019-01-29 14:52 | NUR ---
I have reviewed this patient and I concur with the Shift Assessment completed by the Licensed Practical Nurse today this shift.
--- NOTE | 2019-01-29 14:59 | MORECARE ---
CASE MANAGEMENT DISCHARGE SUMMARY PATIENT: RAYMOND HERNANDEZ UNIT: [id number] ADM DATE: 01/22/19 AGE: 68 : [birth year] SEX: M ROOM/BED: D.2102 AUTHOR: ZULEMA YI PHYSICIAN: REFERRING PHYSICIAN: EBER KABA MD DATE OF SERVICE: 01/29/19 Discharge Plan Patient Name: RAYMOND HERNANDEZ Facility: [facility] : 1950 Planned Disposition: Home Anticipated Discharge Date: 01/29/19 Discharge Date: Expected LOS: 7 Initial Reviewer: [email or web address] Initial Review Date: 01/25/2019 Generated: 01/29/19 3:58 pm Comments DCP- Discharge Planning Updated by [id number]: Con Barrera on 01/29/19 1:[address] Patient Name: RAYMOND HERNANDEZ Encounter No: [id number] : 1950 Primary Insurance: [facility] MEDICARE SOLUTIONS Anticipated DC Date: 01-29-2019 Planned Disposition: Home DCP follow-up note: CM RECEIVED DISCHARGE ORDER, REVIEWED CHART WHICH HAS NO IV ANTIBIOTICS LISTED IN DISCHARGE MEDICATION LIST. CM MET WITH PT AND SPOUSE IN ROOM TO DISCUSS DISCHARGE NEEDS AND PLANNING. CM DISCUSSED AVAILABILITY OF HOME HEALTH, REHAB SERVICES AND MEDICAL EQUIPMENT. PT IS HOPEFUL THAT HE CAN JUST HAVE ORAL ANTIBIOTICS AND WILL NOT NEED IV ANTIBIOTICS. PT'S SPOUSE REPORTS SHE IS ABLE TO ASSIST PT AT HOME WITH IV ANTIBIOTICS IF NEEDED. PT DENIES DISCHARGE NEEDS. SPOUSE TO TRANSPORT HOME AT DISCHARGE. IMPORTANT MESSAGE FROM MEDICARE PROVIDED AND EXPLAINED. CM TO FOLLOW AND ASSIST NEEDED. MURPHY Devlin DCP- Discharge Planning Updated by [id number]: Michelle May on 01/25/19 9:[address] Patient Name: RAYMOND HERNANDEZ Admission Status: ER Accout number: [id number] Admission Date: 01-22-2019 : 1950 Admission Diagnosis: Attending: EBER KABA Current LOS: 3 Anticipated DC Date: Planned Disposition: Home Primary Insurance: [facility] MEDICARE SOLUTIONS Discharge Planning Comments: CM AFTER OBTAINING VERBAL CONSENT COMPLETED INITIAL ASSESSMENT. PT WAS EDUCATED ON CM ROLE AND ON ALL SERVICES AVAILABLE LIKE DME, HOME HEALTH AND REHAB SERVICES. PT DENIES ANY NEEDS AT THIS TIME. LIVES WITH SPOUSE AND STATES HOME IS A SAFE DC PLAN. CM WILL CONT TO FOLLOW THRU STAY Contracting Executive: Michelle May DCPIA - Discharge Planning Initial Assessment Updated by [id number]: Michelle May on 01/25/19 10:25 am * Is the patient Alert and Oriented? Yes * How many steps to enter\exit or inside your home? * PCP Jerrod * Pharmacy [facility] [address] * Preadmission Environment Home with Family * ADLs Independent * List name and contact numbers for known caregivers / representatives who currently or will assist patient after discharge: spouse Lidia [phone] * Additional services required to return to the preadmission environment? No * Can the patient safely return to the preadmission environment? Yes * Has this patient been hospitalized within the prior 30 days at any hospital? No Coverage Notice Reviewer: [id number] Raghu Barrera Notice Issued Date-Time: 01/29/2019 14:15 Notice Type: IM Discharge Notice Notice Delivered To: Patient Relationship to Patient: Fur Coat Sewer Name: Delivery Method: HAND - Hand Delivered Bernarda Days: Prior Verbal Notification: Recipient Understood Notice: Yes Recipient Signature: Yes Med Rec Note Co-signed by Attending: Coverage Notice Comment: Last DP export: 01/25/19 9:35 am Patient Name: RAYMOND HERNANDEZ Page [id number] at 1459 All edits/amendments must be made on the electronic document DICTATION DATE: 01/29/191457 FOOT CASTER: BETHANY 01/29/191457 RPT#: [id number] DC DATE: STATUS: ADM IN [facility] [address] [place] [address] END OF REPORT
--- NOTE | 2019-01-29 16:06 | MORECARE ---
CASE MANAGEMENT DISCHARGE SUMMARY PATIENT: RAYMOND HERNANDEZ UNIT: [id number] ADM DATE: 01/22/19 AGE: 68 : [birth year] SEX: M ROOM/BED: D.2102 AUTHOR: ZULEMA YI PHYSICIAN: REFERRING PHYSICIAN: EBER KABA MD DATE OF SERVICE: 01/29/19 Discharge Plan Patient Name: RAYMOND HERNANDEZ Facility: [facility]:[place] : 1950 Planned Disposition: Home Anticipated Discharge Date: 01/29/19 Discharge Date: Expected LOS: 7 Initial Reviewer: [id number] Initial Review Date: 01/25/2019 Generated: 01/29/19 5:06 pm Comments DCP- Discharge Planning Updated by [id number]: Con Barrera on 01/29/19 1:[address] Patient Name: RAYMOND HERNANDEZ Encounter No: [id number] : 1950 Primary Insurance: [facility] MEDICARE SOLUTIONS Anticipated DC Date: 01-29-2019 Planned Disposition: Home DCP follow-up note: CM RECEIVED DISCHARGE ORDER, REVIEWED CHART WHICH HAS NO IV ANTIBIOTICS LISTED IN DISCHARGE MEDICATION LIST. CM MET WITH PT AND SPOUSE IN ROOM TO DISCUSS DISCHARGE NEEDS AND PLANNING. CM DISCUSSED AVAILABILITY OF HOME HEALTH, REHAB SERVICES AND MEDICAL EQUIPMENT. PT IS HOPEFUL THAT HE CAN JUST HAVE ORAL ANTIBIOTICS AND WILL NOT NEED IV ANTIBIOTICS. PT'S SPOUSE REPORTS SHE IS ABLE TO ASSIST PT AT HOME WITH IV ANTIBIOTICS IF NEEDED. PT DENIES DISCHARGE NEEDS. SPOUSE TO TRANSPORT HOME AT DISCHARGE. IMPORTANT MESSAGE FROM MEDICARE PROVIDED AND EXPLAINED. CM TO FOLLOW AND ASSIST NEEDED. MURPHY Devlin DCP- Discharge Planning Updated by [id number]: Michelle May on 01/25/19 9:[address] Patient Name: RAYMOND HERNANDEZ Admission Status: ER Accout number: [id number] Admission Date: 01-22-2019 : 1950 Admission Diagnosis: Attending: EBER KABA Current LOS: 3 Anticipated DC Date: Planned Disposition: Home Primary Insurance: [facility] MEDICARE SOLUTIONS Discharge Planning Comments: CM AFTER OBTAINING VERBAL CONSENT COMPLETED INITIAL ASSESSMENT. PT WAS EDUCATED ON CM ROLE AND ON ALL SERVICES AVAILABLE LIKE DME, HOME HEALTH AND REHAB SERVICES. PT DENIES ANY NEEDS AT THIS TIME. LIVES WITH SPOUSE AND STATES HOME IS A SAFE DC PLAN. CM WILL CONT TO FOLLOW THRU STAY Sales Order Clerk: Michelle May DCPIA - Discharge Planning Initial Assessment Updated by [email or web address]: Michelle May on 01/25/19 10:25 am * Is the patient Alert and Oriented? Yes * How many steps to enter\exit or inside your home? * PCP Jerrod * Pharmacy [facility] [address] * Preadmission Environment Home with Family * ADLs Independent * List name and contact numbers for known caregivers / representatives who currently or will assist patient after discharge: spouse Lidia [phone] * Additional services required to return to the preadmission environment? No * Can the patient safely return to the preadmission environment? Yes * Has this patient been hospitalized within the prior 30 days at any hospital? No Coverage Notice Reviewer: [id number] Raghu Barrera Notice Issued Date-Time: 01/29/2019 14:15 Notice Type: IM Discharge Notice Notice Delivered To: Patient Relationship to Patient: Mail Officer Name: Delivery Method: HAND - Hand Delivered Bernarda Days: Prior Verbal Notification: Recipient Understood Notice: Yes Recipient Signature: Yes Med Rec Note Co-signed by Attending: Coverage Notice Comment: Last DP export: 01/29/19 1:58 p Patient Name: RAYMOND HERNANDEZ Page [phone] at 1606 All edits/amendments must be made on the electronic document DICTATION DATE: 01/29/191604 SERVICE PORTER: BETHANY 01/29/19 160 RPT#: [id number] DC DATE: STATUS: ADM IN [facility] [address] [place] [address] END OF REPORT
--- NOTE | 2019-01-29 16:41 | NUR ---
DISCHARGE INSTRUCTIONS GIVEN TO PATIENT AND . PATIENT HELPED OUT OF UNIT BY STAFF.
--- NOTE | 2019-02-03 18:38 | CN ---
PATIENT NAME:RAYMOND SUAREZ MEDICAL RECORD: [id number] : [birth year] LOCATION:D. D.2102 ADMIT DATE: 01/22/19 ACCOUNT: [id number] CONSULTING PHYSICIAN: YUNG ARTEAGA MD REFERRING PHYSICIAN: EBER KABA MD DATE OF CONSULTATION: 01/23/2019 CARDIOLOGY CONSULTATION DIAGNOSES: 1. Chest pain. 2. Hypertension. 3. Noninsulin dependent diabetes. 4. Gastroesophageal reflux disease. 5. Obesity. HISTORY OF PRESENT ILLNESS: Mr. Suarez has been having chest discomfort this week. It is difficult for him to tell the difference between GERD and non-GERD pain. He thinks it is related to his GERD. He has risk factors of diabetes, obesity, hypertension. His troponins are normal. EKG is with no ST-T changes. PHYSICAL EXAMINATION: GENERAL APPEARANCE: Well-nourished, well-developed, appears stated age. Level of distress, comfortable. PSYCHIATRIC: Mental status, alert, normal affect. Orientation, oriented to time, place and person. EYES: Lids and conjunctiva, noninjected. No discharge, no pallor. ENT: Lips, teeth, gums, normal dentition. Oropharynx, no cyanosis, no pallor. NECK: Carotid arteries, bilateral normal upstroke, no bruits, no thrills. JUGULAR VEINS: No jugular venous pressure or distention. CERVICAL LYMPH NODES: Nontender, nonenlarged. THYROID: Not enlarged. Nontender. No nodules. LUNGS: Respiratory effort, unlabored. CHEST: Normal curvature. No thoracic deformity. No chest wall tenderness. Percussion, resonant. Auscultation, clear. No wheezes, no rales, no rhonchi. CARDIOVASCULAR: Precordial exam, nondisplaced. No heaves or pericardial thrills. Rate and rhythm, regular. Heart sounds, normal S1, normal S2. No S3, no gallop, no rub. Systolic murmur, not heard. Diastolic murmur, not heard. EXTREMITIES: No cyanosis, no edema. Peripheral pulses, full and equal in all extremities, except as noted. No bruits appreciated. ABDOMEN: Soft, nondistended. Normal aorta. No bruit. Nontender. No masses. Liver, nontender, no hepatomegaly. Spleen, nontender, no splenomegaly. MUSCULOSKELETAL: No joint tenderness. No joint swelling. No erythema. NEUROLOGICAL: Normal gait, normal strength, normal tone. SKIN: Warm and dry. OVERALL IMPRESSION: Chest pain. At this time, it very well may be GERD. There is no objective evidence that he has anything from the standpoint of ischemic heart disease. We will risk stratify with stress testing and Cardiolite imaging as an outpatient. TRANSINT:[id number] Voice Confirmation ID: [id number] DOCUMENT ID: [id number] CONSULT REPORT [id number] RAYMOND SUAREZ, YUNG SILVERIO at 1838 CC: [id number] DICTATION DATE: 01/23/19902 [employer] SALES REPRESENTATIVE: 01/23/19 0942 DIS IN 01/29/19 [facility] [address] [place] [address]
== END 2019-01-29 16:43 | disposition home or self-care (01) | DRG 872 ==
LOC: D.ER 11:04 → D.M2 18:19
PROVIDERS: Family Medicine; ADMIT Internal Medicine Nephrology; ATTEND Internal Medicine Nephrology
DX: A41.50 Gram-negative sepsis, unspecified (principal); N39.0 Urinary tract infection, site not specified; N17.9 Acute kidney failure, unspecified; E87.1 Hypo-osmolality and hyponatremia; Z68.41 Body mass index [BMI] 40.0-44.9, adult; E83.52 Hypercalcemia; N40.0 Benign prostatic hyperplasia without lower urinary tract symptoms; I10 Essential (primary) hypertension; E78.5 Hyperlipidemia, unspecified; E11.51 Type 2 diabetes mellitus with diabetic peripheral angiopathy without gangrene; E03.9 Hypothyroidism, unspecified; K21.9 Gastro-esophageal reflux disease without esophagitis; E66.01 Morbid (severe) obesity due to excess calories; I25.119 Atherosclerotic heart disease of native coronary artery with unspecified angina pectoris